=== PATIENT | male | born 1985 | race Caucasian/White ===

== ENCOUNTER 2024-06-01 11:39 | Inpatient (IN) | payer OTHER ==
[~2024-06-01] VITALS: Ht 165.1 cm; Wt 85.7 kg
[2024-06-01] VITALS (7 sets, daily range): BP systolic 112–143; BP diastolic 73–90; PULSE 73–81; RESP 18–20; TEMP 98.1–98.5; O2SAT 29–98
[~2024-06-01 11:39] MED LIST: NO HOME MEDS
[2024-06-01 12:12] LABS: BASOPHILS % 0.3 % (0.0-1.0); EOSINOPHILS # (AUTO) 0.1 (0.0-0.4); EOSINOPHILS % 0.7 % (0.0-6.0); HEMATOCRIT 44.2 % (38.2-49.6); HEMOGLOBIN 13.8 g/dL (14.0-18.0); LYMPHOCYTES # (AUTO) 1.5 (1.0-3.2); LYMPHOCYTES % 12.7 % (18.0-39.1); MEAN CORPUSCULAR HEMOGLOBIN 28.5 pg (28-32); MEAN CORPUSCULAR HGB CONC 31.2 g/dL (31-35); MEAN CORPUSCULAR VOLUME 91.1 fL (81-99); MONOCYTES # (AUTO) 1.2 (0.2-0.8); MONOCYTES % 9.8 % (4.4-11.3); NEUTROPHILS # (AUTO) 9.1 (2.1-6.9); PLATELET COUNT 258 x10e3/uL (140-360); RED BLOOD COUNT 4.85 x10e6/uL (4.3-5.7); RED CELL DISTRIBUTION WIDTH 13.7 % (11.7-14.4); WHITE BLOOD COUNT 11.91 x10e3/uL (4.8-10.8)
[2024-06-01] MEDS: KETOROLAC TROMETHAMINE 30 MG/ML VIAL IV STA (12:13)
[2024-06-01] MEDS: ONDANSETRON HCL INJ 2MG/ML 2ML 2 MG/ML VIAL IV STA (12:13)
[2024-06-01 12:24] LABS: CLARITY,URINE CLOUDY (CLEAR); COLOR,URINE ORANGE (YELLOW)
[2024-06-01 12:25] LABS: NITRITE,URINE POSITIVE (NEGATIVE); PH,URINE 6 (5 - 7)
[2024-06-01 12:26] LABS: BILIRUBIN,URINE NEGATIVE (NEGATIVE)
[2024-06-01 12:47] LABS: BACTERIA,URINE MANY /HPF; EPITHELIAL CELLS,URINE FEW /LPF; RBC,URINE >50 /HPF (0-5)
[2024-06-01 12:56] LABS: ALBUMIN 4.5 g/dL (3.5-5.0); ALBUMIN/GLOBULIN RATIO 1.5 (0.8-2.0); ANION GAP 16.8 mmol/L (8-16); BILIRUBIN,TOTAL 0.4 mg/dL (0.2-1.2); CALCIUM 9.9 mg/dL (8.4-10.2); CREATININE, SERUM 1.37 mg/dL (0.72-1.25); POTASSIUM 3.8 mmol/L (3.5-5.1); TOTAL PROTEIN 7.6 g/dL (6.5-8.1)
[2024-06-01] MEDS ORDERED: Morphine 4mg INJECTION 4 MG/ML INJ IV PRN (13:15)
[2024-06-01] MEDS ORDERED: ONDANSETRON HCL INJ 2MG/ML 2ML 2 MG/ML VIAL IV PRN (13:15)
[2024-06-01] MEDS ORDERED: SODIUM CHLORIDE 0.9% 1000ML 1,000 ML IV SCH (13:15)
[2024-06-01] MEDS ORDERED: DIPHENHYDRAMINE HCL 25 MG CAP PO PRN (14:30)
[2024-06-01] MEDS ORDERED: DEXTROSE 50% SYRINGE 50 ML IV PRN (14:30)
[2024-06-01] MEDS ORDERED: LIDOCAINE 4% PATCH TP PRN (14:30)
[2024-06-01] MEDS ORDERED: ACETAMINOPHEN 325 MG TAB PO PRN (14:30)
[2024-06-01] MEDS ORDERED: BENZONATATE 100 MG CAP PO PRN (14:30)
[2024-06-01] MEDS ORDERED: DOCUSATE SODIUM 100 MG CAP PO PRN (14:30)
[2024-06-01] MEDS ORDERED: POTASSIUM CHLORIDE 20 MEQ TAB CR PO PRN (14:30)
[2024-06-01] MEDS ORDERED: HYDRALAZINE HCL 20 MG/ML VIAL IV PRN (14:30)
[2024-06-01] MEDS ORDERED: ALBUTEROL/IPRATROPIUM 3 ML NEB NEB PRN (14:30)
[2024-06-01] MEDS ORDERED: SIMETHICONE 80 MG CHEW PO PRN (14:30)
[2024-06-01] MEDS: SODIUM CHLORIDE 0.9% 1000ML 1,000 ML IV SCH (15:00)
[2024-06-01] MEDS: ENOXAPARIN SOD INJ 40 MG/0.4 ML SYR SC SCH (17:00)
[2024-06-01] MEDS: ONDANSETRON HCL INJ 2MG/ML 2ML 2 MG/ML VIAL IV PRN (17:55)
[2024-06-01] MEDS: Morphine 4mg INJECTION 4 MG/ML INJ IV PRN (17:55)
[2024-06-02] VITALS (7 sets, daily range): BP systolic 105–123; BP diastolic 65–82; PULSE 57–78; RESP 17–22; TEMP 97.2–98.6; O2SAT 95–100
[2024-06-02 06:04] LABS: BASOPHILS % 0.6 % (0.0-1.0); EOSINOPHILS # (AUTO) 0.1 (0.0-0.4); EOSINOPHILS % 1.8 % (0.0-6.0); HEMATOCRIT 34.5 % (38.2-49.6); LYMPHOCYTES # (AUTO) 2.3 (1.0-3.2); LYMPHOCYTES % 33.1 % (18.0-39.1); MEAN CORPUSCULAR HEMOGLOBIN 28.6 pg (28-32); MEAN CORPUSCULAR HGB CONC 31.9 g/dL (31-35); MEAN CORPUSCULAR VOLUME 89.6 fL (81-99); MONOCYTES # (AUTO) 0.7 (0.2-0.8); MONOCYTES % 9.8 % (4.4-11.3); NEUTROPHILS # (AUTO) 3.8 (2.1-6.9); NEUTROPHILS % 54.4 % (38.7-80.0); PLATELET COUNT 221 x10e3/uL (140-360); RED BLOOD COUNT 3.85 x10e6/uL (4.3-5.7); RED CELL DISTRIBUTION WIDTH 14.6 % (11.7-14.4); WHITE BLOOD COUNT 7.03 x10e3/uL (4.8-10.8)
[2024-06-02 06:43] LABS: ANION GAP 13.9 mmol/L (8-16); CALCIUM 8.6 mg/dL (8.4-10.2); CREATININE, SERUM 1.25 mg/dL (0.72-1.25); POTASSIUM 3.9 mmol/L (3.5-5.1)
[2024-06-02] MEDS: PANTOPRAZOLE SOD 40 MG TABEC PO SCH (07:20)
[2024-06-02] MEDS: HYDROCODONE/APAP 5MG-325MG TAB PO PRN (13:51)
[2024-06-03] VITALS (11 sets, daily range): BP systolic 98–149; BP diastolic 57–91; PULSE 59–76; RESP 17–20; TEMP 97.5–98.2; O2SAT 96–100
[2024-06-03 06:06] LABS: BASOPHILS % 0.7 % (0.0-1.0); EOSINOPHILS # (AUTO) 0.1 (0.0-0.4); EOSINOPHILS % 2.2 % (0.0-6.0); HEMATOCRIT 34.1 % (38.2-49.6); HEMOGLOBIN 10.6 g/dL (14.0-18.0); LYMPHOCYTES # (AUTO) 2.2 (1.0-3.2); LYMPHOCYTES % 40.9 % (18.0-39.1); MEAN CORPUSCULAR HEMOGLOBIN 28.4 pg (28-32); MEAN CORPUSCULAR HGB CONC 31.1 g/dL (31-35); MEAN CORPUSCULAR VOLUME 91.4 fL (81-99); MONOCYTES # (AUTO) 0.5 (0.2-0.8); MONOCYTES % 8.9 % (4.4-11.3); NEUTROPHILS # (AUTO) 2.6 (2.1-6.9); NEUTROPHILS % 47.1 % (38.7-80.0); PLATELET COUNT 224 x10e3/uL (140-360); RED BLOOD COUNT 3.73 x10e6/uL (4.3-5.7); RED CELL DISTRIBUTION WIDTH 14.6 % (11.7-14.4); WHITE BLOOD COUNT 5.48 x10e3/uL (4.8-10.8)
[2024-06-03 06:42] LABS: ANION GAP 12.5 mmol/L (8-16); CALCIUM 8.5 mg/dL (8.4-10.2); CREATININE, SERUM 1.13 mg/dL (0.72-1.25); POTASSIUM 4.5 mmol/L (3.5-5.1)
[2024-06-04] VITALS (9 sets, daily range): BP systolic 117–135; BP diastolic 76–94; PULSE 59–99; RESP 17–20; TEMP 98.1–98.5; O2SAT 96–100
[2024-06-04 06:13] LABS: BASOPHILS % 0.6 % (0.0-1.0); EOSINOPHILS # (AUTO) 0.2 (0.0-0.4); EOSINOPHILS % 2.7 % (0.0-6.0); HEMATOCRIT 34.7 % (38.2-49.6); LYMPHOCYTES % 30.7 % (18.0-39.1); MEAN CORPUSCULAR HEMOGLOBIN 28.7 pg (28-32); MEAN CORPUSCULAR HGB CONC 31.7 g/dL (31-35); MEAN CORPUSCULAR VOLUME 90.6 fL (81-99); MONOCYTES # (AUTO) 0.6 (0.2-0.8); MONOCYTES % 8.8 % (4.4-11.3); NEUTROPHILS # (AUTO) 3.6 (2.1-6.9); NEUTROPHILS % 56.9 % (38.7-80.0); PLATELET COUNT 230 x10e3/uL (140-360); RED BLOOD COUNT 3.83 x10e6/uL (4.3-5.7); RED CELL DISTRIBUTION WIDTH 14.1 % (11.7-14.4); WHITE BLOOD COUNT 6.36 x10e3/uL (4.8-10.8)
[2024-06-04 06:45] LABS: CALCIUM 8.9 mg/dL (8.4-10.2); CREATININE, SERUM 1.21 mg/dL (0.72-1.25)
[2024-06-04] MEDS ORDERED: PROPOFOL IV EMULSION 10 MG/ML 20 ML VIAL ONE (10:37)
[2024-06-04] MEDS ORDERED: FENTANYL CITRATE/PF 100MCG/2 ML INJ ONE (10:37)
[2024-06-04] MEDS ORDERED: MIDAZOLAM HCL 2 MG/2 ML VIAL ONE (10:37)
[2024-06-04] MEDS ORDERED: DEXAMETHASONE SOD PHOS INJ 4 MG/ML SDV ONE (11:06)
[2024-06-04] MEDS ORDERED: ONDANSETRON HCL INJ 2MG/ML 2ML 2 MG/ML VIAL ONE (11:06)
[2024-06-04] MEDS ORDERED: LIDOCAINE HCL 2% LOCAL INJ 5 ML SDV VIAL INJ ONE (11:06)
[2024-06-04] MEDS: HYDRALAZINE HCL 20 MG/ML VIAL IV ONE (12:35)
[2024-06-04] MEDS ORDERED: SEVOFLURANE INHAL SOLN 250 ML PEN BTL ONE (13:15)
[2024-06-04] MEDS: PHENAZOPYRIDINE HCL 100 MG TAB PO PRN (14:16)
[2024-06-04] MEDS: HYDRALAZINE HCL 20 MG/ML VIAL ONE (14:23)
[2024-06-04] MEDS: MELATONIN 5 MG TABLET PO PRN (20:09)
[2024-06-05] VITALS: BP 114/65; PULSE 68; RESP 18; TEMP 98.5; O2SAT 100
[2024-06-05 04:00] VITALS: BP 113/66; PULSE 61; RESP 18; TEMP 98.1; O2SAT 99
[2024-06-05 06:10] VITALS: PULSE 74; RESP 20; O2SAT 99
[2024-06-05 07:04] LABS: BASOPHILS % 0.2 % (0.0-1.0); HEMATOCRIT 34.7 % (38.2-49.6); HEMOGLOBIN 11.3 g/dL (14.0-18.0); LYMPHOCYTES # (AUTO) 0.8 (1.0-3.2); LYMPHOCYTES % 7.1 % (18.0-39.1); MEAN CORPUSCULAR HEMOGLOBIN 28.8 pg (28-32); MEAN CORPUSCULAR HGB CONC 32.6 g/dL (31-35); MEAN CORPUSCULAR VOLUME 88.3 fL (81-99); MONOCYTES # (AUTO) 0.8 (0.2-0.8); MONOCYTES % 6.7 % (4.4-11.3); NEUTROPHILS # (AUTO) 9.9 (2.1-6.9); NEUTROPHILS % 85.5 % (38.7-80.0); PLATELET COUNT 257 x10e3/uL (140-360); RED BLOOD COUNT 3.93 x10e6/uL (4.3-5.7); RED CELL DISTRIBUTION WIDTH 14.1 % (11.7-14.4); WHITE BLOOD COUNT 11.63 x10e3/uL (4.8-10.8)
[2024-06-05] MEDS: ACETAMINOPHEN/CODEINE 300MG - 30MG TAB PO PRN (07:29)
[2024-06-05 07:54] LABS: ANION GAP 14.2 mmol/L (8-16); CALCIUM 9.1 mg/dL (8.4-10.2); POTASSIUM 4.2 mmol/L (3.5-5.1)
[2024-06-05 08:09] VITALS: BP 115/74; PULSE 69; RESP 18; TEMP 98.1; O2SAT 100
[2024-06-05] MEDS: SOLIFENACIN SUCCINATE 5 MG TAB PO SCH (08:32)
[2024-06-05 10:40] VITALS: BP 115/74; PULSE 69; RESP 18; TEMP 98.1; O2SAT 100
[2024-06-05 12:30] VITALS: BP 123/72; PULSE 57; RESP 18; TEMP 97.9; O2SAT 99
== END 2024-06-05 13:35 | disposition home or self-care (01) | DRG 660 ==
LOC: ER 11:56 → ERHOLD 13:10 → ER 13:14 → MED/SURG3 15:08
PROVIDERS: ADMIT Internal Medicine; ATTEND Internal Medicine
PROC: 0TCB8ZZ Extirpation of Matter from Bladder, Via Natural or Artificial Opening Endoscopic (ICD-10-PCS; 2024-06-04)
PROC: 0TP98DZ Removal of Intraluminal Device from Ureter, Via Natural or Artificial Opening Endoscopic (ICD-10-PCS; 2024-06-04)
PROC: BT141ZZ Fluoroscopy of Kidneys, Ureters and Bladder using Low Osmolar Contrast (ICD-10-PCS; 2024-06-04)
PROC: 0TF6XZZ Fragmentation in Right Ureter, External Approach (ICD-10-PCS; 2024-06-04)
PROC: 0TC18ZZ Extirpation of Matter from Left Kidney, Via Natural or Artificial Opening Endoscopic (ICD-10-PCS; principal; 2024-06-04 10:45)
PROC: 0T788DZ Dilation of Bilateral Ureters with Intraluminal Device, Via Natural or Artificial Opening Endoscopic (ICD-10-PCS; 2024-06-04 10:45)
PROC: 0TC08ZZ Extirpation of Matter from Right Kidney, Via Natural or Artificial Opening Endoscopic (ICD-10-PCS; 2024-06-04 10:45)
DX: N13.6 Pyonephrosis (principal); T83.89XA Other specified complication of genitourinary prosthetic devices, implants and grafts, initial encounter; N21.0 Calculus in bladder; N17.9 Acute kidney failure, unspecified; Z46.6 Encounter for fitting and adjustment of urinary device; R31.0 Gross hematuria; R31.29 Other microscopic hematuria; N40.0 Benign prostatic hyperplasia without lower urinary tract symptoms; D64.9 Anemia, unspecified; Z91.198 Patient's noncompliance with other medical treatment and regimen for other reason; Y83.1 Surgical operation with implant of artificial internal device as the cause of abnormal reaction of the patient, or of later complication, without mention of misadventure at the time of the procedure; Y92.009 Unspecified place in unspecified non-institutional (private) residence as the place of occurrence of the external cause
CPT/HCPCS: 36415; 50590; 74018; 74176; 80048; 80053; 81001; 83970; 84550; 85025; 87086; 88300; 94799; 99284; C1758; C1766; C1769; C2617; J0360; J0696; J1100; J1650; J1885; J2003; J2250; J2270; J2405; J7030

== ENCOUNTER 2024-07-09 09:08 | Inpatient (IN) | payer OTHER ==
[2024-07-09] VITALS (8 sets, daily range): BP systolic 102–129; BP diastolic 64–74; PULSE 46–78; RESP 17–20; TEMP 97.8–98.9; O2SAT 98–100
[~2024-07-09] VITALS: Ht 165.1 cm; Wt 85.7 kg
[2024-07-09] MEDS: SODIUM CHLORIDE 0.9% 1000ML 1,000 ML IV STA (09:31)
[2024-07-09] MEDS: KETOROLAC TROMETHAMINE 30 MG/ML VIAL IV STA (09:31)
[2024-07-09 09:34] LABS: BASOPHILS % 0.7 % (0.0-1.0); EOSINOPHILS # (AUTO) 0.2 (0.0-0.4); EOSINOPHILS % 2.5 % (0.0-6.0); HEMATOCRIT 39.3 % (38.2-49.6); HEMOGLOBIN 13.1 g/dL (14.0-18.0); LYMPHOCYTES # (AUTO) 1.8 (1.0-3.2); MEAN CORPUSCULAR HEMOGLOBIN 28.5 pg (28-32); MEAN CORPUSCULAR HGB CONC 33.3 g/dL (31-35); MEAN CORPUSCULAR VOLUME 85.4 fL (81-99); MONOCYTES # (AUTO) 0.8 (0.2-0.8); MONOCYTES % 12.9 % (4.4-11.3); NEUTROPHILS # (AUTO) 3.3 (2.1-6.9); NEUTROPHILS % 54.7 % (38.7-80.0); PLATELET COUNT 283 x10e3/uL (140-360); RED CELL DISTRIBUTION WIDTH 13.8 % (11.7-14.4); WHITE BLOOD COUNT 6.03 x10e3/uL (4.8-10.8)
[2024-07-09 09:56] LABS: INR 0.94; PARTIAL THROMBOPLASTIN TIME 32.7 seconds (23.8-35.5); PROTHROMBIN TIME 13.2 seconds (11.9-14.5)
[2024-07-09 10:04] LABS: ALBUMIN 4.4 g/dL (3.5-5.0); ALBUMIN/GLOBULIN RATIO 1.4 (0.8-2.0); ANION GAP 13.8 mmol/L (8-16); BILIRUBIN,TOTAL 0.5 mg/dL (0.2-1.2); CREATININE, SERUM 1.1 mg/dL (0.72-1.25); POTASSIUM 3.8 mmol/L (3.5-5.1); TOTAL PROTEIN 7.5 g/dL (6.5-8.1)
[2024-07-09 11:06] LABS: COLOR,URINE BROWN (YELLOW)
[2024-07-09 11:07] LABS: BILIRUBIN,URINE MODERATE (NEGATIVE); CLARITY,URINE CLOUDY (CLEAR); GLUCOSE, URINE NEGATIVE (NEGATIVE); KETONES,URINE TRACE (NEGATIVE); LEUKOCYTE ESTERASE ,URINE TRACE (NEGATIVE); NITRITE,URINE NEGATIVE (NEGATIVE); PH,URINE 6 (5 - 7); PROTEIN,URINE DIPSTICK >=300 (NEGATIVE); URINE UROBILINOGEN 1 mg/dL (0.2 - 1)
[2024-07-09 11:20] LABS: BACTERIA,URINE MANY /HPF; EPITHELIAL CELLS,URINE RARE /LPF; RBC,URINE >50 /HPF (0-5)
[2024-07-09] MEDS ORDERED: ONDANSETRON HCL INJ 2MG/ML 2ML 2 MG/ML VIAL IV PRN (11:45)
[2024-07-09] MEDS ORDERED: ALBUTEROL/IPRATROPIUM 3 ML NEB NEB PRN (14:00)
[2024-07-09] MEDS ORDERED: DOCUSATE SODIUM 100 MG CAP PO PRN (14:00)
[2024-07-09] MEDS ORDERED: ACETAMINOPHEN 325 MG TAB PO PRN (14:00)
[2024-07-09] MEDS ORDERED: LIDOCAINE 4% PATCH TP PRN (14:00)
[2024-07-09] MEDS ORDERED: HYDRALAZINE HCL 20 MG/ML VIAL IV PRN (14:00)
[2024-07-09] MEDS ORDERED: POTASSIUM CHLORIDE 20 MEQ TAB CR PO PRN (14:00)
[2024-07-09] MEDS ORDERED: DEXTROSE 50% SYRINGE 50 ML IV PRN (14:00)
[2024-07-09] MEDS ORDERED: SIMETHICONE 80 MG CHEW PO PRN (14:00)
[2024-07-09] MEDS ORDERED: DIPHENHYDRAMINE HCL 25 MG CAP PO PRN (14:00)
[2024-07-09] MEDS ORDERED: MELATONIN 5 MG TABLET PO PRN (14:00)
[2024-07-09] MEDS ORDERED: BENZONATATE 100 MG CAP PO PRN (14:00)
[2024-07-09] MEDS: Morphine 4mg INJECTION 4 MG/ML INJ IV PRN (14:36)
[2024-07-09] MEDS: SODIUM CHLORIDE 0.9% 1000ML 1,000 ML IV SCH (14:36)
[2024-07-09] MEDS ORDERED: VESICARE5 MG PO (18:59)
[2024-07-09] MEDS ORDERED: PHENAZOPYRIDINE HCL 100 MG TAB PO PRN (19:15)
[2024-07-10] VITALS (7 sets, daily range): BP systolic 103–135; BP diastolic 72–89; PULSE 54–64; RESP 16–19; TEMP 98.1–98.4; O2SAT 98–100
[2024-07-10] MEDS: SOLIFENACIN SUCCINATE 5 MG TAB PO SCH (08:01)
[2024-07-10] MEDS: PANTOPRAZOLE SOD 40 MG TABEC PO SCH (08:01)
[2024-07-10 08:56] LABS: BASOPHILS % 0.5 % (0.0-1.0); EOSINOPHILS # (AUTO) 0.2 (0.0-0.4); EOSINOPHILS % 3.1 % (0.0-6.0); HEMATOCRIT 33.6 % (38.2-49.6); HEMOGLOBIN 10.6 g/dL (14.0-18.0); LYMPHOCYTES # (AUTO) 2.1 (1.0-3.2); LYMPHOCYTES % 35.4 % (18.0-39.1); MEAN CORPUSCULAR HGB CONC 31.5 g/dL (31-35); MEAN CORPUSCULAR VOLUME 88.7 fL (81-99); MONOCYTES # (AUTO) 0.6 (0.2-0.8); MONOCYTES % 10.1 % (4.4-11.3); NEUTROPHILS # (AUTO) 3.1 (2.1-6.9); NEUTROPHILS % 50.6 % (38.7-80.0); PLATELET COUNT 216 x10e3/uL (140-360); RED BLOOD COUNT 3.79 x10e6/uL (4.3-5.7); WHITE BLOOD COUNT 6.04 x10e3/uL (4.8-10.8)
[2024-07-10 09:15] LABS: ALBUMIN 3.2 g/dL (3.5-5.0); ALBUMIN/GLOBULIN RATIO 1.3 (0.8-2.0); ANION GAP 12.3 mmol/L (8-16); BILIRUBIN,TOTAL 0.2 mg/dL (0.2-1.2); CALCIUM 7.9 mg/dL (8.4-10.2); CREATININE, SERUM 1.04 mg/dL (0.72-1.25); POTASSIUM 4.3 mmol/L (3.5-5.1); TOTAL PROTEIN 5.7 g/dL (6.5-8.1)
[2024-07-11] VITALS (9 sets, daily range): BP systolic 114–121; BP diastolic 74–80; PULSE 55–68; RESP 15–19; TEMP 98–98.6; O2SAT 95–100
[2024-07-11 18:09] LABS: CALCIUM 7.9 mg/dL (8.7-10.2)
[2024-07-12 04:57] LABS: BASOPHILS % 0.5 % (0.0-1.0); EOSINOPHILS # (AUTO) 0.2 (0.0-0.4); HEMATOCRIT 36.6 % (38.2-49.6); HEMOGLOBIN 11.8 g/dL (14.0-18.0); LYMPHOCYTES # (AUTO) 2.4 (1.0-3.2); LYMPHOCYTES % 42.4 % (18.0-39.1); MEAN CORPUSCULAR HEMOGLOBIN 28.4 pg (28-32); MEAN CORPUSCULAR HGB CONC 32.2 g/dL (31-35); MEAN CORPUSCULAR VOLUME 88.2 fL (81-99); MONOCYTES # (AUTO) 0.6 (0.2-0.8); MONOCYTES % 10.7 % (4.4-11.3); NEUTROPHILS # (AUTO) 2.4 (2.1-6.9); NEUTROPHILS % 42.4 % (38.7-80.0); PLATELET COUNT 235 x10e3/uL (140-360); RED BLOOD COUNT 4.15 x10e6/uL (4.3-5.7); RED CELL DISTRIBUTION WIDTH 13.4 % (11.7-14.4); WHITE BLOOD COUNT 5.71 x10e3/uL (4.8-10.8)
[2024-07-12 05:21] VITALS: BP 121/82; PULSE 55; RESP 18; TEMP 98.1; O2SAT 98
[2024-07-12 05:26] LABS: CALCIUM 8.9 mg/dL (8.4-10.2)
[2024-07-12 05:49] LABS: CREATININE, SERUM 0.98 mg/dL (0.72-1.25)
[2024-07-12] MEDS ORDERED: LIDOCAINE HCL 2% LOCAL INJ 5 ML SDV VIAL INJ ONE (06:22)
[2024-07-12] MEDS ORDERED: PROPOFOL IV EMULSION 10 MG/ML 20 ML VIAL ONE ×2 (06:22→07:39)
[2024-07-12] MEDS ORDERED: FENTANYL CITRATE/PF 100MCG/2 ML INJ ONE (06:22)
[2024-07-12] MEDS ORDERED: MIDAZOLAM HCL 2 MG/2 ML VIAL ONE (06:57)
[2024-07-12] MEDS ORDERED: SEVOFLURANE INHAL SOLN 250 ML PEN BTL ONE (07:05)
[2024-07-12] MEDS ORDERED: ONDANSETRON HCL INJ 2MG/ML 2ML 2 MG/ML VIAL ONE (07:05)
[2024-07-12] MEDS ORDERED: DEXAMETHASONE SOD PHOS INJ 4 MG/ML SDV ONE (07:05)
[2024-07-12] MEDS ORDERED: ACETAMINOPHEN 1000 MG/100 ML 100 ML IV ONE (07:16)
[2024-07-12] MEDS ORDERED: PHENAZOPYRIDINE HCL 100 MG TAB PO PRN (09:00)
[2024-07-12] MEDS ORDERED: SOLIFENACIN SUCCINATE 5 MG TAB PO SCH (09:00)
[2024-07-12 10:05] VITALS: BP 128/74; PULSE 61; RESP 16; RESP 18; TEMP 98.3; O2SAT 97
[2024-07-12 12:47] VITALS: BP 133/91; PULSE 64; RESP 16; TEMP 97.9; O2SAT 98
[2024-07-12] MEDS: ACETAMINOPHEN/CODEINE 300MG - 30MG TAB PO PRN (15:58)
[2024-07-12 18:08] VITALS: BP 131/82; PULSE 64; RESP 18; TEMP 98.1; O2SAT 98
== END 2024-07-12 18:09 | disposition home or self-care (01) | DRG 660 ==
LOC: ER 09:12 → ERHOLD 11:39 → MED/SURG 13:31
PROVIDERS: ADMIT Internal Medicine; ATTEND Internal Medicine
PROC: 0T7D8ZZ Dilation of Urethra, Via Natural or Artificial Opening Endoscopic (ICD-10-PCS; 2024-07-12)
PROC: 0TC18ZZ Extirpation of Matter from Left Kidney, Via Natural or Artificial Opening Endoscopic (ICD-10-PCS; 2024-07-12)
PROC: 0TC68ZZ Extirpation of Matter from Right Ureter, Via Natural or Artificial Opening Endoscopic (ICD-10-PCS; 2024-07-12)
PROC: 0TP98DZ Removal of Intraluminal Device from Ureter, Via Natural or Artificial Opening Endoscopic (ICD-10-PCS; 2024-07-12)
PROC: BT141ZZ Fluoroscopy of Kidneys, Ureters and Bladder using Low Osmolar Contrast (ICD-10-PCS; 2024-07-12)
PROC: 0T778DZ Dilation of Left Ureter with Intraluminal Device, Via Natural or Artificial Opening Endoscopic (ICD-10-PCS; principal; 2024-07-12 06:57)
DX: N13.2 Hydronephrosis with renal and ureteral calculous obstruction (principal); T83.84XA Pain due to genitourinary prosthetic devices, implants and grafts, initial encounter; G89.18 Other acute postprocedural pain; N35.912 Unspecified bulbous urethral stricture, male; Z46.6 Encounter for fitting and adjustment of urinary device; R80.9 Proteinuria, unspecified; Q54.9 Hypospadias, unspecified; Z91.198 Patient's noncompliance with other medical treatment and regimen for other reason; E66.9 Obesity, unspecified; Z68.31 Body mass index [BMI] 31.0-31.9, adult; Y92.009 Unspecified place in unspecified non-institutional (private) residence as the place of occurrence of the external cause; Y83.8 Other surgical procedures as the cause of abnormal reaction of the patient, or of later complication, without mention of misadventure at the time of the procedure
CPT/HCPCS: 36415; 74176; 74420; 80048; 80053; 81001; 82948; 83735; 83970; 84550; 85025; 85610; 85730; 87086; 88300; 94799; 99284; C1758; C1769; C2617; J1100; J1885; J2003; J2250; J2270; J2405; J2470; J2543; J7030